=== PATIENT | male | born 1975 | race Caucasian/White ===

== ENCOUNTER 2021-12-27 11:43 | Emergency (ER) | payer SELFPAY ==
[2021-12-27 11:49] VITALS: BP 142/92; PULSE 88; RESP 20; TEMP 36.4; O2SAT 98; BMI 32.6
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
[2021-12-27 12:10] VITALS: BP 142/92; PULSE 88; RESP 16; O2SAT 98
[2021-12-27] MEDS: ketorolac 60 mg/2 mL INJ IM (12:16)
== END 2021-12-27 13:40 | disposition home or self-care (01) ==
PROVIDERS: Emergency Provider Physician Assistant; PCP Family Medicine
DX: S49.91XA Unspecified injury of right shoulder and upper arm, initial encounter (principal); V89.2XXA Person injured in unspecified motor-vehicle accident, traffic, initial encounter
CPT/HCPCS: 73030; 96372; 99283; J1885

== ENCOUNTER 2022-12-26 08:03 | Outpatient (CLI) | payer MEDICAID, SELFPAY ==
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
== END 2022-12-26 08:04 | disposition home or self-care (01) ==
LOC: RAD 08:07
PROVIDERS: PCP Family Medicine; Visit Provider Family Medicine
DX: M75.101 Unspecified rotator cuff tear or rupture of right shoulder, not specified as traumatic (principal)
CPT/HCPCS: 73030

== ENCOUNTER → 2023-01-29 14:44 | Outpatient (BNVA) | payer MEDICAID, SELFPAY | PROVIDERS: PCP Family Medicine; Visit Provider Student in an Organized Health Care Education/Training Program | DX: M19.011 Primary osteoarthritis, right shoulder (principal) | CPT/HCPCS: 20605; 20610; 99204; J3301 ==

== ENCOUNTER 2024-05-08 14:44 | Emergency (ER) | payer SELFPAY ==
[2024-05-08 14:48] VITALS: BP 149/97; PULSE 113; RESP 18; TEMP 36.7; O2SAT 97
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
[2024-05-08] MEDS: HYDROcodone-acetaminophen 7.5-325 mg Tablet 1 TAB PO (17:44)
[2024-05-08] MEDS: amoxicillin-clav 875-125 mg Tablet 1 TAB PO (17:44)
[2024-05-08] MEDS: tetanus-dipt-pertussis 0.5 mL SDV IM (17:45)
[2024-05-08] MEDS: lidocaine-epi 2% 20 mL INJ INJECTION (17:48)
[2024-05-08 17:49] VITALS: RESP 18
== END 2024-05-08 17:50 | disposition home or self-care (01) ==
PROVIDERS: Emergency Provider Nurse Practitioner Family; PCP Family Medicine
DX: S81.812A Laceration without foreign body, left lower leg, initial encounter (principal); W29.3XXA Contact with powered garden and outdoor hand tools and machinery, initial encounter; Z23 Encounter for immunization
CPT/HCPCS: 12002; 73590; 90471; 90715; 99283

== ENCOUNTER 2025-06-23 12:27 | Emergency (ER) | payer BC, MEDICAID, SELFPAY ==
--- NOTE | 2025-06-23 12:30 | XRR_ITS ---
PROCEDURE INFORMATION: Exam: XR Left Ankle Exam date and time: 06/23/2025 12:59 PM Age: 50 years old Clinical indication: Injury or trauma; Other: Not specified; Blunt trauma; Ankle; Left. No history of surgery is provided. TECHNIQUE: Imaging protocol: Radiologic exam of the left ankle. 3image(s) are provided. Views: 3 or more views. COMPARISON: CR XR foot LT min 3V* [id number] 06/23/2025 12:56 PM. No previous ankle radiograph is currently available. FINDINGS: Bones/joints: Osseous alignment is maintained. No displaced ankle fracture or dislocation is appreciated. There is some tiny spurring of the Achilles insertion. There are some degenerative changes of the hindfoot, midfoot including some spurring, beaking of the talonavicular junction. No definite osseous coalition type changes are currently appreciated. Posterior os trigonum is demonstrated. There is some accessory ossification for example about the cuboid margin. There appear to be some degenerative changes of the ankle mortise. Soft tissues: No radiopaque foreign body or subcutaneous emphysema is appreciated.Atherosclerotic vascular changes are demonstrated. XR/XR ankle LT min 3V* [id number] IMPRESSION: Osseous alignment is maintained with some degenerative appearance overall. No fracture or dislocation is appreciated.
--- NOTE | 2025-06-23 12:30 | XRR_ITS ---
PROCEDURE INFORMATION: Exam: XR Left Foot Exam date and time: 06/23/2025 12:56 PM Age: 50 years old Clinical indication: Injury or trauma; Fall and other: Not specified; Blunt trauma; Foot; Left. No history of surgery is provided. TECHNIQUE: Imaging protocol: Radiologic exam of the left foot. 3image(s) are provided. Views: 3 or more views. COMPARISON: 1. CR XR tibia fibula LT 2V [id number] 05/08/2024 4:29 PM 2. CR XR ankle LT min 3V* [id number] 06/23/2025 12:59 PM. No previous foot radiograph is currently available. FINDINGS: Bones/joints: Osseous alignment is maintained. No displaced foot fracture or dislocation is appreciated. There appear to be some degenerative changes of the ankle mortise with subtle spurring and subchondral cystic related change. There are some degenerative appearing changes of the hindfoot, midfoot. There is some mild degeneration of the 1st metatarsophalangeal junction. There is some accessory ossification appearance for example including about the navicular margins. There is some subtle calcification although appears somewhat corticated about the distal fibular tip on the oblique view more conspicuous on the foot series. Consider overall if there is localized point tenderness. Soft tissues: No radiopaque foreign body or subcutaneous emphysema is appreciated.Atherosclerotic vascular changes are demonstrated. No other significant interval changes are appreciated. XR/XR foot LT min 3V* [id number] IMPRESSION: Osseous alignment is maintained with no displaced fracture or dislocation appreciated. There is some marginal punctate calcification albeit with some corticated appearing margins about the distal fibular tip. This may represent chronicity although some subtle avulsion injury could also present in this fashion.
[2025-06-23 12:33] VITALS: BP 134/84; PULSE 85; TEMP 36.8; O2SAT 96
--- NOTE | 2025-06-23 13:41 | W.ED.EXTPRO ---
HPI - Extremity Problem General: Chief complaint: Extremity Injury, Lower Stated complaint: lt foot inj Time Seen by Provider: 06/23/25 13:08 History of Present Illness: 50M w/cc of L lateral malleolus and anterior foot pain, swelling and bruising. He rolled his ankle a few days ago. Patient has been ambulating on the foot but today when he went to work the pain increased. He does not report any motor or sensory deficits. Related Data Previous Rx's ?Medication ?Instructions ?Recorded amoxicillin 875 mg-potassium 1 tab PO BID #20 tabs 05/08/24 clavulanate 125 mg tablet hydrocodone 5 mg-acetaminophen 325 1 tab PO Q6H PRN pain #10 tabs 05/08/24 mg tablet naproxen 500 mg tablet 500 mg PO BID PRN pain 7 days #14 06/23/25 tabs Allergies Allergy/AdvReac Type Severity Reaction Status Date / Time No Known Allergies Allergy Verified 06/23/25 12:38 [facility] ED PFSH: Medical History (Updated 06/23/25 @ 13:43 by Glendy Calderon MD) No pertinent past medical history Surgical History No pertinent past surgical history Physical Exam Narrative: EXAM NARRATIVE: Vital signs were reviewed. Patient is alert and oriented. Patient is breathing comfortably, no increased WOB or accessory muscle use. SpO2 is above 95% on RA. No hypotension or tachycardia. Patient is moving all extremities, no motor or sensory deficit, palpable DP and PT pulse in LLE. He has swelling over the lateral malleolus and bruising of the anterolateral foot, no pain w/palpation of the Lis Franc joint. Course Vital Signs: Vital signs: Vital Signs Temperature 98.2 F 06/23/25 12:33 Pulse Rate 73 06/23/25 14:04 Respiratory Rate 16 06/23/25 14:04 Blood Pressure 148/87 06/23/25 14:04 Pulse Oximetry 96 06/23/25 14:04 Oxygen Delivery Me thod Room Air 06/23/25 12:33 MDM - Extremity (Nontraumatic) Medical Decision Making 50yo M w/cc of L ankle pain and swelling after rolling his ankle several days ago. Differential diagnosis includes but is not limited to, fracture, dislocation, contusion, sprain, laceration, other. On exam, patient is in medically stable. He was evaluated x-rays of the left foot and ankle. He was treated for pain with p.o. naproxen and Tylenol. Lab Data Radiology Impressions Ankle X-Ray 06/23/25 12:30 IMPRESSION: Osseous alignment is maintained with some degenerative appearance overall. No fracture or dislocation is appreciated. Foot X-Ray 06/23/25 12:30 IMPRESSION: Osseous alignment is maintained with no displaced fracture or dislocation appreciated. There is some marginal punctate calcification albeit with some corticated appearing margins about the distal fibular tip. This may represent chronicity although some subtle avulsion injury could also present in this fashion. All radiology interpretation(s) finalized by discharge Discharge Plan Discharge Patient Disposition: Home Clinical Impression: Ankle sprain and strain Foot sprain Qualifiers: Encounter type: initial encounter Laterality: left Qualified Code(s): S93.602A - Unspecified sprain of left foot, initial encounter Condition: Stable Prescriptions: New naproxen 500 mg tablet 500 mg PO BID PRN (Reason: pain) 7 Days Qty: 14 0RF No Action hydrocodone-acetaminophen 5-325 mg tablet 1 tab PO Q6H PRN (Reason: pain) Qty: 10 0RF amoxicillin-pot clavulanate 875-125 mg tablet 1 tab PO BID Qty: 20 0RF Discharge Orders: Discharge ED (Routine); Ordered 06/23/25 Ordered By: Glendy Calderon Referrals: Layton Salcido MD [Primary Care Provider, [facility]] Patient Instructions: Opioid Safety, Pain Management, Patient Portal & Pro Instructions Activity Restrictions/Additional Instructions: Please continue to monitor your condition closely at home. Take Naproxen 500mg twice a day and Tylenol 500mg every six hours for pain and inflammation. You can take these in addition to your home medications. Rest, ice and elevate your injured extremity. If your condition worsens or additional concerns arise, please return promptly to the emergency department for reassessment. Follow up with your primary care doctor in one week. If you continue to have significant pain, talk to your primary care doctor about outpatient MRI to assess ligaments and rule out small fractures that we were not able to see on Xray today. Print Language: Thai Coding Level of Care Code ED Edm Operator for Emilia Montgomery
[2025-06-23 14:04] VITALS: BP 148/87; PULSE 73; RESP 16; O2SAT 96
== END 2025-06-23 13:58 | disposition home or self-care (01) ==
PROVIDERS: Emergency Provider Emergency Medicine; PCP Family Medicine
DX: S93.602A Unspecified sprain of left foot, initial encounter (principal); S93.402A Sprain of unspecified ligament of left ankle, initial encounter; X58.XXXA Exposure to other specified factors, initial encounter
CPT/HCPCS: 73610; 73630; 99283; J9999

== ENCOUNTER 2025-07-02 13:28 | Emergency (ER) | payer BC, MEDICAID, SELFPAY ==
[2025-07-02 13:31] VITALS: BP 137/84; PULSE 102; RESP 18; TEMP 36.6; O2SAT 98; BMI 31.0
--- NOTE | 2025-07-02 13:47 | W.ED.BACK ---
HPI - Back Pain/Injury General: Chief Complaint: Back Pain/Injury Stated Complaint: back inj Time Seen by Provider: 07/02/25 13:42 History of Present Illness: 50-year-old man presents emergency room with low back pain. He says he was lifting something heavy and hurt his back. No trauma. He has tried Tylenol at home with no relief. No saddle numbness, no urinary retention or incontinence, no focal motor deficit, no sensory deficit. no recent fever. no cough. no shortness of breath. no chest pain. no abdominal pain. no nausea or vomiting. no dysuria. no altered mental status. no edema. Related Data Previous Rx's ?Medication ?Instructions ?Recorded amoxicillin 875 mg-potassium 1 tab PO BID #20 tabs 05/08/24 clavulanate 125 mg tablet hydrocodone 5 mg-acetaminophen 325 1 tab PO Q6H PRN pain #10 tabs 05/08/24 mg tablet cyclobenzaprine 10 mg tablet 10 mg PO Q8H PRN muscle spasm #20 07/02/25 tabs dexamethasone 6 mg tablet 6 mg PO DAILY 5 days #5 tabs 07/02/25 diclofenac sodium 50 mg 50 mg PO BID PRN pain #14 tabs 07/02/25 tablet,delayed release hydrocodone 5 mg-acetaminophen 325 1 tab PO Q8H PRN pain #14 tabs 07/02/25 mg tablet Allergies Allergy/AdvReac Type Severity Reaction Status Date / Time honey Allergy ALGY-Anaphy Verified 07/02/25 13:35 laxis Review of Systems Narrative: Constitutional symptoms: Negative except as documented in HPI. Skin symptoms: Negative except as documented in HPI. Eye symptoms: Negative except as documented in HPI. ENMT symptoms: Negative except as documented in HPI. Respiratory symptoms: Negative except as documented in HPI. Cardiovascular symptoms: Negative except as documented in HPI. Gastrointestinal symptoms: Negative except as documented in HPI. Genitourinary symptoms: Negative except as documented in HPI. Musculoskeletal symptoms: Negative except as documented in HPI. Neurologic symptoms: Negative except as documented in HPI. Psychiatric symptoms: Negative except as documented in HPI. Endocrine symptoms: Negative except as documented in HPI. PFS ED PFSH: Medical History (Updated 07/02/25 @ 13:47 by Juyd Kurtz MD) No pertinent past medical history Surgical History No pertinent past surgical history Physical Exam Narrative: EXAM NARRATIVE: General: Alert, no acute distress. Head: Normocephalic Neck: Trachea midline Eye: Extraocular movements are intact. Ears, nose, mouth and throat: Oral mucosa moist Respiratory: Respirations are non-labored Musculoskeletal: Normal ROM Back: no step off, no focal tenderness, some paraspinal muscle tenderness Neurological: Alert and oriented, No focal neurological deficit observed. Psychiatric: Cooperative, appropriate mood & affect. Course Vital Signs: Vital signs: Vital Signs Temperature 97.9 F 07/02/25 13:31 Pulse Rate 102 H 07/02/25 13:31 Respiratory Rate 18 07/02/25 13:31 Blood Pressure 137/84 07/02/25 13:31 Pulse Oximetry 98 07/02/25 13:31 Oxygen Delivery Me thod Room Air 07/02/25 13:31 MDM - Back Pain/Injury Medical Decision Making No imaging indicated today. Initial exam for a low back strain. Needs medications and possibly PT before imaging should be considered. Assessment and plan: Acute low back strain ?P.o. [place], IM Toradol and IM Norflex - Discharged home - Discussed plan with patient. Answered any questions. - Evaluation and treatment of this problem were appropriate in the emergency setting. No radiology studies performed this visit Discharge Plan Discharge Patient Disposition: Home Clinical Impression: Strain of lumbar region Condition: Stable Prescriptions: New cyclobenzaprine 10 mg tablet 10 mg PO Q8H PRN (Reason: muscle spasm) Qty: 20 0RF hydrocodone-acetaminophen 5-325 mg tablet 1 tab PO Q8H PRN (Reason: pain) Qty: 14 0RF Rx Instructions: Take 1/2 to 1 tab every 8 hours as needed for pain dexamethasone 6 mg tablet 6 mg PO DAILY 5 Days Qty: 5 0RF diclofenac sodium 50 mg tablet,delayed release (DR/EC) 50 mg PO BID PRN (Reason: pain) Qty: 14 0RF No Action hydrocodone-acetaminophen 5-325 mg tablet 1 tab PO Q6H PRN (Reason: pain) Qty: 10 0RF amoxicillin-pot clavulanate 875-125 mg tablet 1 tab PO BID Qty: 20 0RF Discharge Orders: Discharge ED (Routine); Ordered 07/02/25 Ordered By: Judy Kurtz Referrals: Layton Salcido MD [Primary Care Provider, Family Practice] Discharge Diet: Usual diet Discharge Activity: Increase activity as tolerated Patient Instructions: Acute Low Back Pain (ED), Opioid Safety, Pain Management, Patient Portal & Pro Instructions Activity Restrictions/Additional Instructions: Thank you for choosing [facility] for your healthcare needs today. You have been screened and evaluated and felt safe for discharge. Health conditions do change or evolve sometimes and as such it is important that you follow up with your Primary Doctor to be re checked, 3-5 days is a general good time frame for follow up. You are always welcome to return to the ED for re assessment if your symptoms are worsening or you have new concerns Print Language: Bahraini Coding Level of Care Code ED Engineering Officer for Emilia Montgomery
[2025-07-02] MEDS: orphenadrine 30 mg/mL Inj 2 mL 60 MG IM (13:56)
[2025-07-02] MEDS: HYDROcodone-acetaminophen 10-325 mg Tablet 1 TAB PO (13:57)
[2025-07-02 14:07] VITALS: BP 140/87; PULSE 99; RESP 17; O2SAT 96
== END 2025-07-02 14:08 | disposition home or self-care (01) ==
PROVIDERS: Emergency Provider Emergency Medicine; PCP Family Medicine
DX: S39.012A Strain of muscle, fascia and tendon of lower back, initial encounter (principal); X50.0XXA Overexertion from strenuous movement or load, initial encounter
CPT/HCPCS: 96372; 99284; J1885; J2360; J9999

== ENCOUNTER 2025-08-22 13:12 | Emergency (ER) | payer BC, MEDICAID, SELFPAY ==
--- NOTE | 2025-08-22 13:15 | ECG_ITS ---
[facility] Test Date: 2025-08-22 Pat Name: Oren Bernardo Department: Room: Gender: Male Senior Administrative Support: : 1975 Requested By: Thu Eubanks Order Number: [id number] Arthur MD: Vicente Brooks M.D. Measurements Intervals [place] Rate: 95 P: 56 TN: 139 QRS: 17 QRSD: 74 T: 50 QT: 333 QTc: 419 Interpretive Statements SINUS RHYTHM No previous ECG available for comparison Electronically Signed On 08-22-2025 21:11:23 CDT by Vicente Brooks M.D. [id number]
[2025-08-22 13:18] VITALS: BP 181/108; PULSE 100; RESP 20; TEMP 36.3; O2SAT 97; BMI 29.5
--- NOTE | 2025-08-22 13:38 | XRR_ITS ---
PROCEDURE INFORMATION: Exam: XR Chest Exam date and time: 08/22/2025 02:03 PM Age: 50 years old Clinical indication: Shortness of breath; Additional info: Short of breath TECHNIQUE: Imaging protocol: Radiologic exam of the chest. Views: 1 view. COMPARISON: CR XR shoulder RT min 2V* [id number] 12/26/2022 08:30 AM FINDINGS: Lungs: Unremarkable. No consolidation. Pleural spaces: Unremarkable. No pleural effusion. No pneumothorax. Heart/Mediastinum: Unremarkable. No cardiomegaly. Bones/joints: Unremarkable. XR/XR chest 1V portable [id number] IMPRESSION: No acute findings.
--- NOTE | 2025-08-22 13:48 | W.ED.CHESTPA ---
HPI - Chest Pain General: Chief Complaint: Chest Pain Stated Complaint: chest pain History of Present Illness: Patient is a 50-year-old male presents to the emergency room with chest pain. Content: This occurred at rest while drinking alcohol 30 minutes prior to arrival. He arrived at triage at 1:17 PM. This was not with activity. It feels like there is pain in the upper left portion of his chest. Worse with a deep breath. No nausea, no vomiting. No aspirin today. Patient has risk factors of family history, tobacco abuse. Denies drug use. Alcohol intake daily: 1.5-2 pints liquor/daily when patient has the money. No previous ischemic workup Pain has continued. Associated symptoms: Deny abdominal pain, dyspnea, fever(s), nausea, palpitations or vomiting Related Data Home Medications ?Medication ?Instructions ?Recorded ?Confirmed No Known Home Medications 08/22/25 08/22/25 Allergies Allergy/AdvReac Type Severity Reaction Status Date / Time honey Allergy ALGY-Anaphy Verified 08/22/25 13:21 laxis Review of Systems General: Reports: 10 or more systems reviewed and unremarkable except in HPI and below Const: Denies: fever(s) or chills ENMT: Denies: throat pain or mouth pain Card: Denies: chest pain or palpitations Resp: Denies: dyspnea or productive cough GI: Denies: abdominal pain, nausea or vomiting Musc: Denies: neck pain, back pain, extremity pain, joint swelling or joint redness Neuro: Denies: headache(s) or numbness in extremities Psych: Denies: anxiety or depression [facility] ED PFSH: Medical History (Updated 08/22/25 @ 16:09 by AFSANEH Montes) No pertinent past medical history Surgical History No pertinent past surgical history Physical Exam Const: COMMON NORMALS: no acute distress, average body habitus and patient oriented x3 HENMT: COMMON NORMALS: normocephalic and atraumatic HEAD & SCALP: normocephalic and atraumatic Chest: CHEST: Yes tenderness pectoral muscle Resp: COMMON NORMALS: normal respiratory effort, No retractions and No use of accessory muscles GI: COMMON NORMALS: Soft to palpation PALPATION: Yes Soft to palpation and No Tenderness to palpation present (GI) (Negative Carballo's) : COMMON NORMALS: Yes no CVA tenderness BLADDER/KIDNEY EXAM: Yes no CVA tenderness Back/Pelvis: COMMON NORMALS: no CVA tenderness Extremity: COMMON NORMALS: normal to inspection, full ROM and capillary refill normal Neuro: COMMON NORMALS: patient oriented x3 Psych: COMMON NORMALS: mental status grossly normal and Normal thought process present THOUGHT PROCESS: Normal thought process present Course Vital Signs: Vital signs: Vital Signs Temperature 97.4 F L 08/22/25 13:18 Pulse Rate 107 H 08/22/25 13:54 Respiratory Rate 18 08/22/25 13:54 Blood Pressure 150/117 08/22/25 13:54 Pulse Oximetry 93 08/22/25 13:54 Oxygen Delivery Me thod Room Air 08/22/25 13:54 MDM - Chest Pain Medical Decision Making Patient is a 50-year-old gentleman not on routine medications, that presents to the ED with sharp stabbing chest pain. He is dehydrated on his labs his sodium slightly elevated at 146 which will need to be repeated after he increases his noncaffeinated beverage, and his TSH is slightly low at 0.25, barely off of parameters. I have asked him to increase his water intake, hold all alcohol, and repeat labs with primary care. Discussed this could be related to alcoholic pancreatitis as well. As well, I ordered an outpatient ultrasound of his right upper quadrant since this is nonemergent. All of this was explained to patient and his spouse. Medical Records I reviewed the patient's medical records. Lab Data I reviewed the patient's lab results. 08/22/25 13:48 08/22/25 13:48 Radiology Impressions Chest X-Ray 08/22/25 13:38 IMPRESSION: No acute findings. Laboratory Results WBC 6.67 10^3/uL (3.29-11.43) 08/22/25 13:48 RBC 5.17 10^6/uL (3.85-5.65) 08/22/25 13:48 Hgb 16.00 g/dL (11.27-16.99) 08/22/25 13:48 Hct 47.5 % (37-53) 08/22/25 13:48 MCV 91.9 fl (82-101) 08/22/25 13:48 MCH 30.9 pg (27-33) 08/22/25 13:48 MCHC 33.7 g/dL (30-55) 08/22/25 13:48 RDW 14.4 % (12.1-15.1) 08/22/25 13:48 Plt Count 171 10^3/cmm (157-399) 08/22/25 13:48 MPV 10.1 fL (7.4-10.4) 08/22/25 13:48 Neut % (Auto) 48.9 % 08/22/25 13:48 Lymph % (Auto) 40.9 % 08/22/25 13:48 [place] % (Auto) 5.7 % 08/22/25 13:48 Eos % (Auto) 3.6 % 08/22/25 13:48 Baso % (Auto) 0.3 % 08/22/25 13:48 Neut # (Auto) 3.26 10^3/uL (1.8-7.7) 08/22/25 13:48 Lymph # (Auto) 2.7 10^3/uL (0.8-4.8) 08/22/25 13:48 [place] # (Auto) 0.4 10^3/uL (0.2-0.9) 08/22/25 13:48 Eos # (Auto) 0.2 10^3/uL (0.0-0.8) 08/22/25 13:48 Baso # (Auto) 0.0 10^3/uL (0.0-0.1) 08/22/25 13:48 Nucleated RBC % (auto) 0 % 08/22/25 13:48 Nucleated RBCs # 0.0 /100WBC 08/22/25 13:48 D-Dimer 0.37 ug/mLFEU (0-0.59) 08/22/25 13:48 Sodium 146 mmol/L (136-145) H 08/22/25 13:48 Potassium 4.3 mmol/L (3.5-5.1) 08/22/25 13:48 Chloride 108 mmol/L (98-107) H 08/22/25 13:48 Carbon Dioxide 27 mmol/L (22-29) 08/22/25 13:48 Anion Gap 15.3 (5-19) 08/22/25 13:48 BUN 11 mg/dL (6-20) 08/22/25 13:48 Creatinine 0.7 mg/dL (0.7-1.2) 08/22/25 13:48 GFR Calculation 120.4 mL/min (90-130) 08/22/25 13:48 Glucose 109 mg/dL (65-115) 08/22/25 13:48 Calculated Osmolality 302 mOsm/kg (285-295) H 08/22/25 13:48 Calcium 9.4 mg/dL (8.5-10.5) 08/22/25 13:48 Magnesium 2.2 mg/dL (1.7-2.3) 08/22/25 13:48 Total Bilirubin 0.4 mg/dL (0.15-1.2) 08/22/25 13:48 AST 53 U/L (0-40) H 08/22/25 13:48 ALT 72 U/L (0-41) H 08/22/25 13:48 Alkaline Phosphatase 83 U/L (40-130) 08/22/25 13:48 Troponin T Baseline < 6 ng/L (0-15) 08/22/25 13:48 Troponin T 120 Minute < 6.0 ng/L (0-15) 08/22/25 15:22 Delta Troponin T 0 ABS# (0-10) 08/22/25 15:22 NT-Pro-B Natriuret Pep < 36 pg/mL (0-125) 08/22/25 13:48 Total Protein 7.4 g/dL (6.6-8.7) 08/22/25 13:48 Albumin 4.6 g/dL (3.5-5.2) 08/22/25 13:48 Globulin 2.8 g/dL (1.3-4.6) 08/22/25 13:48 Lipase 84 U/L (13-60) H 08/22/25 13:48 TSH 0.25 uIU/mL (0.27-4.20) L 08/22/25 13:48 Ethyl Alcohol 288 mg/dL (0-10) H 08/22/25 13:48 All radiology interpretation(s) finalized by discharge Discharge Plan Discharge Patient Disposition: Home Clinical Impression: Atypical chest pain Condition: Stable Prescriptions: No Action No Known Home Medications Discharge Orders: Discharge ED (Routine); Ordered 08/22/25 Ordered By: Thu Eubanks Referrals: Layton Salcido MD [Primary Care Provider, [facility]] Discharge Diet: Low Salt Discharge Activity: Resume usual activity Patient Instructions: Noncardiac Chest Pain (ED), Transaminitis (ED), Patient Portal & Pro Instructions Activity Restrictions/Additional Instructions: - Case management will contact you regardin. Ultrasound of your right upper quadrant where your liver is. 2. Setting up an appointment with primary care physician. Your ultrasound will need to be sent there. On your follow-up to your primary care physician: You will need to repeat your thyroid labs. Your thyroid lab is low, meaning this could be hyperthyroid, however it is barely low. This needs to be repeated in 1 month. - Your sodium level is high due to inappropriate use of water intake. Drink 1 L of water, repeat your labs with your primary care physician in 1 week. - Do not drink alcohol as your liver function is elevated. No Tylenol at this time. This will need to be further worked up with your primary care, and the start of it is the ultrasound of your right upper quadrant. - Return to the emergency room for worsening pain, fever greater 100.4 ?F Thank you for choosing [facility] for your healthcare needs today. You have been screened and evaluated and felt safe for discharge. Health conditions do change or evolve sometimes and as such it is important that you follow up with your Primary Doctor to be re checked, 3-5 days is a general good time frame for follow up. You are always welcome to return to the ED for re assessment if your symptoms are worsening or you have new concerns Print Language: Peruvian Coding Level of Care Code ED Primary Care Nurse for Chg Fwd Heart Score HEART Score Components History: Slightly Suspicous EKG: Normal Age: 45-64 yrs Risk Factors: 1 or 2 Risk Factors Troponin: Baseline Trop <16 ng/L HEART Score RESULT HEART Score: 2
[2025-08-22 13:54] VITALS: BP 150/117; PULSE 107; RESP 18; O2SAT 93
[2025-08-22 13:56] LABS: Hematocrit 47.5 % (37-53); Hemoglobin 16.00 g/dL (11.27-16.99); Mean Corpuscular HGB Conc 33.7 g/dL (30-55); Mean Corpuscular Hemoglobin 30.9 pg (27-33); Mean Corpuscular Volume 91.9 fl (82-101); Nucleated Red Blood Cells % 0 %; Platelet Count 171 10^3/cmm (157-399); Red Blood Count 5.17 10^6/uL (3.85-5.65); White Blood Count 6.67 10^3/uL (3.29-11.43)
[2025-08-22 14:16] LABS: Troponin(5th) Baseline < 6 ng/L (0-15)
[2025-08-22 14:34] LABS: Alanine Aminotransferase 72 U/L (0-41); Albumin Level 4.6 g/dL (3.5-5.2); Alcohol Level 288 mg/dL (0-10); Alkaline Phosphatase 83 U/L (40-130); Aspartate Amino Transferase 53 U/L (0-40); Blood Urea Nitrogen 11 mg/dL (6-20); Calcium 9.4 mg/dL (8.5-10.5); Carbon Dioxide 27 mmol/L (22-29); Chloride 108 mmol/L (98-107); Creatinine Clr Calc Pharmacy 143.6719; Globulin 2.8 g/dL (1.3-4.6); Glucose 109 mg/dL (65-115); Lipase 84 U/L (13-60); Magnesium 2.2 mg/dL (1.7-2.3); NT Pro B Type Natriuretic Pept < 36 pg/mL (0-125); Osmolality Calculated 302 mOsm/kg (285-295); Sodium 146 mmol/L (136-145); Thyroid Stimulating Hormone 0.25 uIU/mL (0.27-4.20); Total Protein 7.4 g/dL (6.6-8.7)
[2025-08-22 14:35] LABS: Anion Gap 15.3 (5-19); Potassium 4.3 mmol/L (3.5-5.1)
--- NOTE | 2025-08-22 14:39 | PC.PHAR ---
Pt states medications prescribed by Dr Kurtz on 07/02/25 are finished and he takes no other medications.
--- NOTE | 2025-08-22 15:38 | ECG_ITS ---
[facility] Date: 2025-08-22 Pat Name: Oren Bernardo Department: Room: Gender: Male Applied Behavior Specialist: : 1975 Requested By: Thu Eubanks Order Number: [id number] Reading MD: NEYDA MACHUCA Measurements Intervals [place] Rate: 89 P: 42 CA: 135 QRS: 17 QRSD: 69 T: 52 QT: 330 QTc: 402 Interpretive Statements SINUS RHYTHM Compared to ECG 08/22/2025 13:15:47 No significant changes Electronically Signed On 08-22-2025 21:10:39 CDT by NEYDA MACHUCA [email or web address] [id number]
[2025-08-22 15:59] LABS: Troponin 5 2HR < 6.0 ng/L (0-15); Troponin 5 2HR Delta 0 ABS# (0-10)
[2025-08-22 16:41] VITALS: BP 138/91; PULSE 92; RESP 16; O2SAT 98
== END 2025-08-22 16:41 | disposition home or self-care (01) ==
PROVIDERS: Emergency Provider Physician Assistant; PCP Family Medicine
DX: R07.89 Other chest pain (principal)
CPT/HCPCS: 36415; 71045; 80053; 80307; 83690; 83735; 83880; 84443; 84484; 85025; 85378; 93005; 99285; J9999

== ENCOUNTER → 2025-09-01 13:50 | Outpatient (BNVA) | payer BC, MEDICAID, SELFPAY | DX: F10.20 Alcohol dependence, uncomplicated (principal) | CPT/HCPCS: 80053; 80061; 84439; 84443 ==

== ENCOUNTER 2025-09-23 15:21 | Outpatient (CLI) | payer BC, MEDICAID, SELFPAY ==
--- NOTE | 2025-09-23 15:15 | MR_ITS ---
WS: [id number] MRI BRAIN WITHOUT AND WITH CONTRAST, ATTENTION DIRECTED TO THE PITUITARY GLAND HISTORY: abnormal tsh COMPARISON: None available. TECHNIQUE: Diffusion-weighted imaging, axial T2 sequence, and postcontrast images in 3 planes are performed. High-resolution coronal and sagittal imaging performed through the pituitary region with and without intravenous gadolinium. No diffusion abnormalities. Small volume scattered T2 and FLAIR signal hyperintensities in the supratentorial white matter. No large infarct. No hemorrhage. Negative posterior fossa. Ventricles and extra-axial spaces are normal. Normal size hippocampal formations. Pituitary gland is normal size. There is no deviation of the optic chiasm or infundibulum. No pituitary mass identified. No enhancing masses or vascular malformations. Normal opacification of the dural venous sinuses. Normal appearance of the orbits and globes. Small amount of mucoperiosteal thickening in the LEFT maxillary sinus. Moderate fluid in the RIGHT mastoid air cells. Calvarium is intact. MR/MR pituitary wo/w con* [id number] IMPRESSION: 1. Study is compromised by motion and artifact. 2. No obvious abnormality noted within the sella turcica or pituitary gland. 3. Mild small vessel changes. These changes can be noted with small vessel dis ease, diabetes, hypertension and migraines. 4. No enhancing masses. 5. RIGHT mastoid air cell effusion.
[2025-09-23] MEDS: gadobenate dimeglumine 20 mL vial 18 ML IV (16:14)
== END 2025-09-23 15:22 | disposition home or self-care (01) ==
LOC: RAD 15:25
DX: R79.89 Other specified abnormal findings of blood chemistry (principal); G93.89 Other specified disorders of brain; J34.89 Other specified disorders of nose and nasal sinuses
CPT/HCPCS: 70553

== ENCOUNTER 2025-09-25 07:58 | Outpatient (CLI) | payer BC, MEDICAID, SELFPAY ==
--- NOTE | 2025-09-25 08:00 | US_ITS ---
WS: [id number] RIGHT UPPER QUADRANT ULTRASOUND HISTORY: elevated liver enzymes COMPARISON: None available. Liver: 13.5 cm in length. Normal size liver. Very slight coarse echotexture throughout the liver. No mass or intrahepatic duct dilatation. Portal Vein: Normal hepatopetal flow with monophasic waveform. Gallbladder: Normally distended gallbladder with no stones or wall thickening. CBD: 0.4 cm Pancreas: Pancreas is poorly visualized. Right kidney: 11.1 cm in length. Normal size and echogenicity. No hydronephrosis or mass. Aorta and IVC: Unremarkable abdominal aorta and IVC. No ascites. US/US liver [id number] IMPRESSION: 1. Normal gallbladder. 2. Normal size liver with very mild changes of hepatocellular disease such as hepatic steatosis. 3. No intrahepatic duct dilatation.
== END 2025-09-25 07:59 | disposition home or self-care (01) ==
LOC: RAD 08:00
DX: R74.01 Elevation of levels of liver transaminase levels (principal)
CPT/HCPCS: 76705

== ENCOUNTER → 2025-09-29 14:33 | Outpatient (BNVA) | payer BC, MEDICAID, SELFPAY | DX: R00.0 Tachycardia, unspecified (principal) | CPT/HCPCS: 84439; 84443; 84481 ==

== ENCOUNTER 2025-09-30 14:52 | Outpatient (CLI) | payer BC, MEDICAID, SELFPAY ==
--- NOTE | 2025-09-30 14:59 | XRR_ITS ---
PROCEDURE INFORMATION: Exam: XR Right Hip Exam date and time: 09/30/2025 3:09 PM Age: 50 years old Clinical indication: Hip pain; X3 months pain in lateral right hip and popping; Additional info: Right hip pain TECHNIQUE: Imaging protocol: Radiologic exam of the right hip. Views: 2 or 3 views hip with pelvis when performed. COMPARISON: No relevant prior studies available. FINDINGS: Bones/joints: Unremarkable. No acute fracture. Soft tissues: Unremarkable. XR/XR hip RT 2-3V wo/w pel* [id number] IMPRESSION: No acute findings.
== END 2025-09-30 14:53 | disposition home or self-care (01) ==
LOC: RAD 14:54
PROVIDERS: Visit Provider Family Medicine
DX: M25.551 Pain in right hip (principal)
CPT/HCPCS: 73502